=== PATIENT | female | born 1985 | race Caucasian/White ===

== ENCOUNTER 2019-06-24 18:27 | Inpatient (IN) | payer BC ==
[2019-06-24] MEDS ORDERED: Penicillin G Potassium IV* 5,000,000 UNITS in NS 0.9% 100 ML* 100 ML IVPB ONE (19:02)
[2019-06-24] MEDS ORDERED: Lactated Ringers 1000 ML Bag* 1,000 ML IV ONE ×2 (19:02→23:47)
[2019-06-24 19:40] LABS: Urine Benzodiazepine Screen None Detected (None Detect); Urine Opiates Screen None Detected (None Detect)
[2019-06-24 20:05] LABS: ABS Basophils 0.1 10^3/ul (0-0.2); ABS Eosinophils 0.2 10^3/ul (0-0.6); ABS Lymphocytes 2.5 10^3/ul (1.0-4.8); ABS Monocytes 1.2 10^3/ul (0-0.8); ABS Neutrophils 10.7 10^3/ul (1.5-7.7); Eosinophil % 1.7 %; Hematocrit 35 % (35-47); Hemoglobin 11.5 g/dL (12.0-16.0); Lymphocyte % 16.8 %; Mean Corpuscular HGB Conc 33 g/dL (31-36); Mean Corpuscular Hemoglobin 31 pg (27-31); Mean Corpuscular Volume 92 fL (80-97); Mean Platelet Volume 11.4 fL (7.4-10.4); Nucleated Red Blood Cells % 0.1; Platelet Count 331 10^3/uL (150-450); Red Blood Count 3.78 10^6 /uL (3.70-4.87); Red Cell Distribution Width 15 % (10-15); White Blood Count 14.7 10^3/uL (3.5-10.8)
[2019-06-24 20:07] LABS: Platelet Count 323 10^3/ul (150-450); Urine Appearance Clear; Urine Bilirubin Negative (Negative); Urine Blood Negative (Negative); Urine Color Yellow; Urine Glucose Negative (Negative); Urine Ketones Negative (Negative); Urine Nitrite Negative (Negative); Urine Protein Negative (Negative); Urine Specific Gravity 1.005 (1.010-1.030); Urine Urobilinogen Negative (Negative)
[2019-06-24 20:12] LABS: Activated Partial Thrombo Time 27.2 seconds (26.0-38.0)
[2019-06-24 20:20] LABS: Albumin 3.5 g/dL (3.2-5.2); Albumin/Globulin Ratio 1.1 (1-3); BUN/Creatinine Ratio 8.5 (8-20); Calcium 9.8 mg/dL (8.6-10.3); EGFR African American 142.9 (>60); EGFR Non-African American 118.1 (>60); Globulin 3.1 g/dL (2-4); Total Bilirubin 0.3 mg/dL (0.2-1.0); Total Protein 6.6 g/dL (6.4-8.9); Uric Acid 4.8 mg/dL (2.3-6.6)
[2019-06-24 20:34] LABS: Fibrinogen 603.2 mg/dL (110.8-404.3)
[2019-06-24 20:39] LABS: Schistocytes ABSENT
--- NOTE | 2019-06-24 20:43 | HP ---
General Information - Reason for Visit IUP at 39-5/7 with rupture of membranes, GBS + - General Information Maternal Age: 33 Grav: 1 Para: 0 SAB: 0 IEA: 0 Estimated Due Date: 06/26/19 Determined By: LMP Gestational Age in Weeks/Days: 39-5/7 Maternal Blood Type and Rh: A Positive - Results this Serology/RPR Result: Non-Reactive Rubella Result: Immune HBsAg Result: Negative HIV Result: Negative GBS Culture Result: Positive Past Medical History Delivery History: See Records Delivery History Comment: Primip Pertinent Past Medical History: See Records Past Medical History Comment: Anemia in - on Fe supplement Asthma - well controlled on medication Depression/Anxiety - well controlled on fluoxetine Pertinent Past Surgical History: See Records Past Surgical History Comment: 2003 - Hay tooth extraction Pertinent Family History: See Records Family History Comment: Father: Heart disease Mother: Thyroid disease, HTN PGM: , heart disease PGF: , heart disease MGF: , heart disease - Antepartal Records Antepartal Records: Reviewed, Uncomplicated - GBS + Review of Systems Constitutional: Uncomfortable - with mild cramping CV Complaint: No Respiratory: Shortness of Breath: No Gastrointestinal: No Nausea/Vomiting, Normal Bowel Movement Genitourinary: Leaking Fluid, No Dysuria, No Bleeding Musculoskeletal: No Complaint, No Epigastric Pain Neurological: No Headache, No Visual Changes Movement: Normal Exam Allergies/Adverse Reactions: Allergies No Known Allergies Allergy (Verified 11/01/15 17:43) BP 143/91 repeat 149/83 HR 91 RR 18 T 98.2 SpO2 100% on RA Lab Values - Entire Visit: Laboratory Tests 06/24/19 06/24/19 06/24/19 19:07 19:45 19:45 WBC RBC Hgb Hct MCV MCH MCHC RDW Plt Count 323 MPV Neut % (Auto) Lymph % (Auto) [place] % (Auto) Eos % (Auto) Baso % (Auto) Absolute Neuts (auto) Absolute Lymphs (auto) Absolute Monos (auto) Absolute Eos (auto) Absolute Basos (auto) Absolute Nucleated RBC Nucleated RBC % INR (Anticoag Therapy) 0.90 APTT 27.2 D-Dimer, Quantitative > 1050 H Sodium 138 Potassium 4.0 Chloride 108 Carbon Dioxide 22 Anion Gap 8 BUN 5 L Creatinine 0.59 Est GFR ( Amer) 142.9 Est GFR (Non-Af Amer) 118.1 BUN/Creatinine Ratio 8.5 Glucose 76 Uric Acid 4.8 Calcium 9.8 Total Bilirubin 0.30 AST 17 ALT 9 Alkaline Phosphatase 252 H Total Protein 6.6 Albumin 3.5 Globulin 3.1 Albumin/Globulin Ratio 1.1 Urine Color Urine Appearance Urine pH Ur Specific [place] Urine Protein Urine Ketones Urine Blood Urine Nitrate Urine Bilirubin Urine Urobilinogen Ur Leukocyte Esterase Urine Glucose Urine Opiates Screen None detected Ur Barbiturates Screen None detected Ur Phencyclidine Scrn None detected Ur Amphetamines Screen None detected U Benzodiazepines Scrn None detected Urine Cocaine Screen None detected U Cannabinoids Screen None detected Blood Type 06/24/19 06/24/19 06/24/19 19:45 19:45 19:45 WBC 14.7 H RBC 3.78 Hgb 11.5 L Hct 35 MCV 92 MCH 31 MCHC 33 RDW 15 Plt Count 331 MPV 11.4 H Neut % (Auto) 72.9 Lymph % (Auto) 16.8 [place] % (Auto) 8.1 Eos % (Auto) 1.7 Baso % (Auto) 0.5 Absolute Neuts (auto) 10.7 H Absolute Lymphs (auto) 2.5 Absolute Monos (auto) 1.2 H Absolute Eos (auto) 0.2 Absolute Basos (auto) 0.1 Absolute Nucleated RBC 0.0 Nucleated RBC % 0.1 INR (Anticoag Therapy) APTT D-Dimer, Quantitative Sodium Potassium Chloride Carbon Dioxide Anion Gap BUN Creatinine Est GFR ( Amer) Est GFR (Non-Af Amer) BUN/Creatinine Ratio Glucose Uric Acid Calcium Total Bilirubin AST ALT Alkaline Phosphatase Total Protein Albumin Globulin Albumin/Globulin Ratio Urine Color Yellow Urine Appearance Clear Urine pH 5.0 Ur Specific [place] 1.005 L Urine Protein Negative Urine Ketones Negative Urine Blood Negative Urine Nitrate Negative Urine Bilirubin Negative Urine Urobilinogen Negative Ur Leukocyte Esterase Negative Urine Glucose Negative Urine Opiates Screen Ur Barbiturates Screen Ur Phencyclidine Scrn Ur Amphetamines Screen U Benzodiazepines Scrn Urine Cocaine Screen U Cannabinoids Screen Blood Type A Positive - Measurements Height: 5 ft 2 in Weight: 189 lb Weight in lbs: [phone] Body Mass Index (BMI): 34.5 Pre- Weight: 160 lb Weight Gained This : 24 lbs and 0 ozs - Exam Breast: Breast Exam Deferred CVA: No CVA Tenderness Extremities: No Edema Heart: Normal Rhythm/Heart Sounds HEENT: No Significant Findings Lungs: Clear Bilaterally Rectal: Rectal Exam Deferred Reflexes: DTR 2+ Thyroid: No Thyromegaly - Abdominal Exam Abdomen Exam: Non-Tender - Ultrasound/Biophysical Profile Ultrasound Status: Not Done Targeted Exam Findings See L&D Outpatient Visit Provider Note for Findings: N/A Estimated Weight: On 06/12/19 growth sono EFW 7lbs 14oz (79.3 %tile). Now by bryantopoljanine EFW 9lbs Presenting Part: Vertex - by bedside sono Membrane Status: SROM Amniotic Fluid Evaluation: Gross Rupture, Clear Sterile Speculum Exam: Not done Bleeding/Discharge: None EFM Findings - External Monitor Findings Baseline Heart Rate: 130 External Monitor Findings: Accelerations Present, No Pattern of Variable or Late Decelerations, Variability Moderate, Baseline Stable External Monitor Findings Comment: No evidence of metabolic acidemia Contractions: Irregular, Mild Assessment/Plan - Assessment IUP at 39-5/7 with pre labor rupture of membranes, GBS + No evidence of metabolic acidemia Elevated BP of unknown significance. Labs drawn, normal - Obstetrical Risk Factors Obstetrical Risk Factors: GBS Positive - Plan Plan: Admit - Anticipate Vaginal Delivery Plan Comment: Admit. PARQ GBS prophylaxis with PCN. Pt and FOB agree. Pt starting to become uncomfortable. Will expectantly manage for now. If no evidence of active labor within 6 hours of rupture agrees to augmentation. Pt plans labor epidural, will request when ready. Dr. Levy aware of pt presence and condition. - Date/Time of Admission Date of Admission: 06/24/19 Time of Admission: 20:01
[2019-06-24] MEDS ORDERED: OBEPIDURAL* 250 ML EPIDURAL ONE (21:52)
--- NOTE | 2019-06-24 21:59 | PN ---
Progress Note - Progress Note Date of Service: 06/24/19 Note: S: Pt increasingly uncomfortable. Would like labor epidural O: BP 129/69 in left lateral HR 87 RR 18 FHT 125bpm. Moderate variability. +Accels. No decels UCs q 2-3 min VE 3-4/100%/vtx -1, clear fluid A: IUP at 39-5/7 in labor No evidence of metabolic acidemia P: Teaching re: labor analgesia. Anesthesia paged for consult
[2019-06-24] MEDS ORDERED: Lidocaine 1.5% EPI 1:200,000* 30 ML SDV ONE (22:41)
[2019-06-24] MEDS ORDERED: OBEPIDURAL* 250 ML EPIDURAL SCH (23:45)
[2019-06-24] MEDS ORDERED: Lactated Ringers 1000 ML Bag* 1,000 ML IV SCH (23:45)
[2019-06-24] MEDS ORDERED: Sodium Citrate/Citric Acid* 15 ML UDC PO PRN (23:47)
[2019-06-24] MEDS ORDERED: Phenylephrine 40 MCG/ML SYRINGE IV PUSH PRN ×2 (23:47)
[2019-06-24] MEDS ORDERED: Famotidine TAB* 20 MG PO PRN (23:47)
--- NOTE | 2019-06-25 00:01 | PN ---
Progress Note - Progress Note Date of Service: 06/24/19 Note: Quick Note: Paged to bedside by RN for evaluation of FHT. Pt comfortable s/p epidural placement complicated by wet tap per Dr. Escobar. Mother's blood pressure dipped to 70's/50's and resultant drop in FHT to 70-90bpm. FHT recovered when maternal blood pressure increased to 100's/70's s/p phenylephrine administration. FHT returned to baseline and remains recovered. Will continue to monitor closely.
[2019-06-25] MEDS: Penicillin G Potassium IV* 2,500,000 UNITS in NS 0.9% 100 ML* 100 ML IVPB SCH ×2 (00:28→05:17)
[2019-06-25] MEDS ORDERED: Phenylephrine 10 MG/ML VIAL* 1 ML VIAL ONE (01:08)
[2019-06-25] MEDS ORDERED: Phenylephrine 40 MCG/ML SYRINGE ONE ×2 (01:08→05:33)
[2019-06-25] MEDS ORDERED: diPHENhydraMINE IV* 50 MG/ML 1 ml VIAL (BENADRYL) IV PRN (02:30)
[2019-06-25] MEDS ORDERED: Oxytocin in LR* 0 UNITS/0 ML BAG IVPB ONE (02:35)
--- NOTE | 2019-06-25 02:40 | PN ---
Progress Note - Progress Note Date of Service: 06/25/19 Note: S: Paged by RN to assess pt due to increasing discomfort and anesthesia request for VE prior to repeat bolus O: BP 117/74 HR 100bpm T 98 FHT 130bpm. Moderate variability. +Accels. No decels UCs q 2-3 VE 4cm/100%/vtx -2 caput at -1, IUPC placed A: IUP at 39-6/7 in labor No evidence of metabolic acidemia GBS +, full abx prophylaxis in labor Poor pain relief from epidural P: Anesthesia to bolus epidural. Bedside support. Will assess UCs with IUPC given lack of change in 6 hours.
[2019-06-25] MEDS ORDERED: Oxytocin in LR* 20 UNITS/1,000 ML BAG IVPB SCH (03:00)
[2019-06-25] MEDS ORDERED: Sodium Citrate/Citric Acid* 15 ML UDC PO ONE (05:18)
[2019-06-25] MEDS ORDERED: ceFOXitin 2 GM IVPREMIX* 2 GM/50 ML BAG IVPB ONE (05:18)
[2019-06-25] MEDS ORDERED: ceFOXitin 2 GM IVPREMIX* 2 GM/50 ML BAG ONE (05:18)
--- NOTE | 2019-06-25 05:28 | PN ---
Progress Note - Progress Note Date of Service: 06/25/19 Note: S: Pt comfortable as long as anesthesia continues to bolus epidural regluarly. Resting peacefully in bed O: BP 123/69 HR 102 BP 99.6 FHT 145bpm. Moderate variability. No decels UCs q 2-4 MVUs not adequate despite IV pitocin VE 4cm/100%/vtx -2, caput -1, unchanged A: IUP at 39-6/7 in labor, arrest of dilation No evidence of metabolic acidemia GBS +, full abx prophylaxis P: Lengthy discussion of arrest of dilation, recommendation for pLTCS. Discussed potential risks of surgery including but not limited to infection, damage to surrounding organs (bowel, bladder, blood vessels or nerves), r/o DVT , r/o bleeding and possible need for blood products. Also discussed hospital stay and recovery. All ?s answered. Pt and FOB agree. Dr. Levy OB-CREDIT CARD ANALYST , Dr. Escobar from anesthesia and neonatology all paged to attend to pt. IV pitocin off to rest pt's uterus.
[2019-06-25] MEDS ORDERED: Morphine PF AMP (0.5MG/ML)* 5 MG/10 ML AMP ONE (05:32)
[2019-06-25] MEDS ORDERED: fentaNYL* 50 MCG/ML 2 ML VIAL (100 MCG VIAL) ONE (05:33)
[2019-06-25] MEDS ORDERED: Sodium Citrate/Citric Acid* 15 ML UDC ONE (05:34)
[2019-06-25] MEDS ORDERED: Ondansetron INJ* 2 MG/ML VIAL ONE (05:34)
[2019-06-25] MEDS ORDERED: Succinylcholine* 20 MG/ML 10 ML VIAL ONE (06:32)
[2019-06-25] MEDS ORDERED: Propofol* 10 MG/ML 20 ML BTL ONE ×2 (06:32→06:45)
[2019-06-25] MEDS ORDERED: OXYTOCIN* 10 UNITS/ML 1 ML VIAL ONE (06:46)
[2019-06-25] MEDS ORDERED: Carboprost Tromethamine* 250 MCG INJ ONE (06:53)
[2019-06-25] MEDS ORDERED: Propofol* 500 MG/50 ML BTL ONE ×2 (07:03→07:32)
[2019-06-25] MEDS ORDERED: Metoclopramide IV* 5 MG/ML 2 ML VIAL IV PRN (07:15)
[2019-06-25] MEDS ORDERED: Naloxone* 0.4 MG/ML 1 ML VIAL IV PRN (07:15)
[2019-06-25] MEDS ORDERED: oxyCODONE TAB* 5 MG TAB PO PRN (07:15)
[2019-06-25] MEDS ORDERED: HYDROmorphone INJ1* 1 MG/ML SYRINGE IV PRN (07:15)
[2019-06-25] MEDS ORDERED: Ketorolac INJ* 30 MG/ML 1 ML VIAL ONE (07:17)
[2019-06-25] MEDS ORDERED: Acetaminophen IV 1GM/100ML * 100 ML ONE (07:19)
[2019-06-25] MEDS ORDERED: Oxytocin in LR* 20 UNITS/1,000 ML BAG IVPB ONE (07:22)
[2019-06-25] MEDS ORDERED: HYDROmorphone INJ1* 1 MG/ML SYRINGE ONE (07:27)
[2019-06-25] MEDS ORDERED: Dibucaine 1% 28.35 GM TUBE PR PRN (08:11)
[2019-06-25] MEDS ORDERED: Glycerin ADULT SUPP PR PRN (08:11)
[2019-06-25] MEDS ORDERED: Witch Hazel PAD* JAR TOPICAL PRN (08:11)
[2019-06-25] MEDS ORDERED: Zolpidem TAB* 5 MG PO PRN (08:11)
[2019-06-25] MEDS ORDERED: Acetaminophen TAB* 325 MG PO PRN (08:11)
[2019-06-25] MEDS ORDERED: HYDROmorphone INJ* 0.5 MG/0.5 ML SYRINGE ONE (08:49)
[2019-06-25] MEDS ORDERED: HYDROmorphone INJ* 0.5 MG/0.5 ML SYRINGE IV PRN (08:54)
[2019-06-25] MEDS ORDERED: Lactated Ringers 1000 ML Bag* 1,000 ML IV SCH (09:00)
[2019-06-25] MEDS: Docusate CAP* 100 MG PO SCH ×3 (10:28→21:06)
--- NOTE | 2019-06-25 13:10 | OP ---
OPERATIVE REPORT: DATE OF OPERATION: 06/25/19 DATE OF : 87 SURGEON: Cristobal Levy, RETIREMENT SPECIALIST: Charissa Lenz MD ANESTHESIA: General. PRE-OP DIAGNOSIS: Arrest of dilation POST-OP DIAGNOSIS: Arrest of dilation, delivered. OPERATIVE PROCEDURE: Primary low transverse section via Pfannenstiel incision. ESTIMATED BLOOD LOSS: 1 L. TOTAL IV FLUIDS ADMINISTERED: 1800 mL. SPECIMEN: The placenta sent to Pathology. COMPLICATIONS: Atony, resolved FINDINGS: Male in vertex position, Apgars 8 and 9, weight was 9 pounds 13 ounces or 4445 g. Normal uterus, fallopian tubes, and ovaries. INDICATIONS: The patient presented with ruptured membranes in labor, failed to progress over 12 hours despite regular spontaneous contractions, was augmented with pitocin and IUPC placed. The patient remained unchanged. EFW via [place] was found to be greater than 9lb's. The risks versus benefits of primary for arrest of dilation versus continued expectant management were reviewed with the patient. Patient agreed to primary . The patient was consented for . The patient understood the risks of section include, but are not limited to visceral or vascular injury, infection, blood loss, need for transfusion, prolonged hospitalization, reoperation. The patient stated understanding and desired to proceed and all questions were answered. DESCRIPTION OF PROCEDURE: The patient was taken to the operating room where a spinal was placed. Spinal was subsequently found to be inadequate. Cefoxitin was given for infection prophylaxis. A time-out was performed and the patient was placed under general anesthesia. She had been prepped and draped in dorsal supine position with a leftward tilt. A Pfannenstiel skin incision was made with a scalpel. The incision was carried down to the fascia with a Bovie. Fascia was incised and extended laterally. Inferior aspect of the fascia was grasped with Leon clamps. The underlying rectus muscle and pyramidalis were dissected off sharply with Celeste scissors. In a similar fashion, the superior aspect of the fascia was elevated with Leon and the rectus muscle was dissected off. Hemostasis was achieved with the Bovie. The rectus muscle was in the midline down to the level of the pubic symphysis. Preperitoneal fatty tissue was bluntly dissected to expose the peritoneum, peritoneum was found to be free of adherent bowel and entered bluntly. Peritoneal incision was extended superiorly and inferiorly to the bladder reflection with good visualization of the bladder. Bladder blade was inserted and vesicouterine peritoneum identified. Intraabdominal survey revealed scant clear peritoneal fluid, thinned out lower uterine segment. Vesicouterine peritoneum was opened with scissors and a bladder flap was developed. The bladder blade was then repositioned to keep the bladder out of the operative field. The lower uterine segment was incised with a scalpel. Amniotic sac spontaneously ruptured and thin meconium stained fluid was noted. The uterine incision was extended in a cephalocaudad manner bluntly. The fetus was in cephalic presentation. Head was elevated out of the pelvis with special attention paid to avoid using the uterine incision as a fulcrum. Gentle fundal pressure was applied once the head was brought into the incision, infant was delivered with no difficulty. Mouth and nose were suctioned with a bulb. The cord was clamped and the infant was handed off to the employee benefits coordinator. IV oxytocin was initiated to facilitate uterine contractions. The placenta was delivered intact with manual massage of the uterine fundus. The uterus was then exteriorized. The inside of the uterus was gently wiped with a lap sponge to assure complete removal of all placental membranes. The uterine incision was then closed with a 0 Vicryl suture in a running locked fashion. An imbricating suture was then also placed with 0 Vicryl. IM Methergine was administered at this point in the case due to uterine atony. Methergine was administered and good effect was noted. The ovaries and tubes were found to be normal. The uterus, tubes, and ovaries were then returned to the abdominal cavity. The blood clots and fluid were wiped out of the abdomen and pelvis with moist laparotomy sponges. Uterine incision was reinspected and good hemostasis was noted. The peritoneum was closed with a 3-0 Vicryl suture in a continuous running fashion. The fascial layer was closed with 0 Vicryl suture in a continuous running fashion. The subcutaneous fat was reapproximated with 3 -0 Vicryl. The skin was then closed with 4-0 Monocryl in a subcuticular fashion. The patient tolerated the procedure well. All the counts were correct x2. The patient was taken to the recovery room in a stable condition. Sukh Levy DO OBGYN [id number]/[facility] #: [id number] [facility]
[2019-06-25] MEDS: Cetirizine* 10 MG TAB PO SCH (13:46)
[2019-06-25] MEDS: Ibuprofen TAB* 600 MG PO PRN ×2 (13:47→19:38)
[2019-06-25] MEDS: oxyCODONE/Acetamin 5/325 MG* TAB PO PRN ×3 (13:47→23:38)
[2019-06-25] MEDS: FLUoxetine CAP* 10 MG PO SCH (13:49)
[2019-06-25] MEDS: Simethicone TAB* 80 MG TAB.CHEW PO SCH ×4 (13:51→21:06)
[2019-06-26] MEDS: Ibuprofen TAB* 600 MG PO PRN ×4 (01:51→20:16)
[2019-06-26] MEDS: oxyCODONE/Acetamin 5/325 MG* TAB PO PRN ×5 (04:03→21:25)
[2019-06-26 06:27] LABS: Hematocrit 23 % (35-47); Hemoglobin 7.5 g/dL (12.0-16.0); Mean Corpuscular HGB Conc 33 g/dL (31-36); Mean Corpuscular Hemoglobin 31 pg (27-31); Mean Corpuscular Volume 94 fL (80-97); Mean Platelet Volume 10.3 fL (7.4-10.4); Platelet Count 243 10^3/uL (150-450); Red Blood Count 2.42 10^6 /uL (3.70-4.87); Red Cell Distribution Width 15 % (10-15)
[2019-06-26 06:32] LABS: ABS Eosinophils 0.3 10^3/ul (0-0.6); ABS Lymphocytes 2.7 10^3/ul (1.0-4.8); ABS Monocytes 1.8 10^3/ul (0-0.8); ABS Neutrophils 13.3 10^3/ul (1.5-7.7); Eosinophil % 1.6 %; Lymphocyte % 14.8 %
[2019-06-26] MEDS: Simethicone TAB* 80 MG TAB.CHEW PO SCH ×4 (08:10→21:25)
[2019-06-26] MEDS: Ferrous Gluconate TAB* 324 MG TAB PO SCH ×2 (08:11→21:25)
[2019-06-26] MEDS: Cetirizine* 10 MG TAB PO SCH (08:11)
[2019-06-26] MEDS: Docusate CAP* 100 MG PO SCH ×3 (08:11→21:25)
[2019-06-26] MEDS: FLUoxetine CAP* 10 MG PO SCH (08:13)
[2019-06-27] MEDS: oxyCODONE/Acetamin 5/325 MG* TAB PO PRN ×3 (01:23→09:23)
[2019-06-27] MEDS: Ibuprofen TAB* 600 MG PO PRN ×3 (03:38→17:56)
[2019-06-27] MEDS: Ferrous Gluconate TAB* 324 MG TAB PO SCH ×2 (08:46→21:16)
[2019-06-27] MEDS: Simethicone TAB* 80 MG TAB.CHEW PO SCH ×4 (08:46→21:16)
[2019-06-27] MEDS: Cetirizine* 10 MG TAB PO SCH (08:46)
[2019-06-27] MEDS: FLUoxetine CAP* 10 MG PO SCH (08:46)
[2019-06-27] MEDS: Docusate CAP* 100 MG PO SCH ×3 (08:46→21:16)
[2019-06-27 21:23] VITALS: BP 125/63
[2019-06-28] MEDS: Ibuprofen TAB* 600 MG PO PRN (04:43)
[2019-06-28] MEDS: FLUoxetine CAP* 10 MG PO SCH (08:08)
[2019-06-28] MEDS: Docusate CAP* 100 MG PO SCH (08:11)
[2019-06-28] MEDS: Simethicone TAB* 80 MG TAB.CHEW PO SCH (08:11)
[2019-06-28] MEDS: Cetirizine* 10 MG TAB PO SCH (08:12)
== END 2019-06-28 12:17 | disposition home or self-care (01) | DRG 540 ==
LOC: MCHOBOUT 18:27 → MCHOB 20:01
PROVIDERS: ADMIT Midwife; ATTEND Obstetrics & Gynecology
PROC: 10D00Z1 Extraction of Products of Conception, Low, Open Approach (ICD-10-PCS; principal; 2019-06-25 06:06)
DX: O75.89 Other specified complications of labor and delivery (principal); O99.824 Streptococcus B carrier state complicating childbirth; D64.9 Anemia, unspecified; O99.344 Other mental disorders complicating childbirth; F41.8 Other specified anxiety disorders; O99.52 Diseases of the respiratory system complicating childbirth; J45.909 Unspecified asthma, uncomplicated; O62.0 Primary inadequate contractions; O90.81 Anemia of the puerperium; Z3A.39 39 weeks gestation of pregnancy; Z37.0 Single live birth
CPT/HCPCS: 36415; 80053; 80307; 81003; 84550; 85025; 85049; 85362; 85384; 85610; 85730; 86850; 86900; 86901; A9270-GY; J0330; J0694; J1170; J1200; J1885; J2405; J2540; J2590; J2704; J3010